=== PATIENT | female | born 1955 | race Caucasian/White ===

== ENCOUNTER 2018-05-14 08:14 | Outpatient (CLI) | payer OTHER ==
[2018-05-14] MEDS ORDERED: ISOVUE-370 76%-LOCM 1 ML ONE (10:33)
--- NOTE | 2018-05-14 11:15 | CT ---
HEAD CT WITH AND WITHOUT CONTRAST: Date: 05-14-18 Comparison: None available. History: Headache, patient reports sudden severe headache in the neck and occipital area radiating to the right side of the head. Technique: Serial axial CT imaging is obtained at 5 mm intervals from the vertex through the skull ba se with and without IV contrast. FINDINGS: The visualized paranasal sinuses and mastoids air cells are well aerated. There is no displaced javid rial fracture. There is no intracranial hemorrhage, midline shift, mass effect, or ventricular enlarg ement. The post contrast imaging is not tailored to evaluate the arterial structures. Post contrast i maging demonstrates no abnormal enhancement within the brain parenchyma. IMPRESSION: Unremarkable head CT with and without contrast. POS: [facility]
== END 2018-05-14 08:15 | disposition home or self-care (01) ==
LOC: BICCT 08:14
PROVIDERS: ATTEND Internal Medicine Cardiovascular Disease
DX: R51 Headache (principal)
CPT/HCPCS: 70470; 82565

== ENCOUNTER 2018-05-25 13:15 | Outpatient (CLI) | payer OTHER ==
--- NOTE | 2018-05-25 14:55 | RAD ---
PA AND LATERAL VIEWS CHEST: Date: 05/25/18 HISTORY: Dyspnea. FINDINGS: The heart size is normal. The lungs are expanded without focal areas of consolidation, pneumothoraces , mattie pulmonary edema, or pleural effusions. There are degenerative changes in the spine. IMPRESSION: No radiographic evidence of acute cardiopulmonary process. POS: [facility]
== END 2018-05-25 13:16 | disposition home or self-care (01) ==
LOC: RAD 13:15
PROVIDERS: ATTEND Internal Medicine
DX: R06.00 Dyspnea, unspecified (principal)
CPT/HCPCS: 71046

== ENCOUNTER 2018-06-01 08:45 | Outpatient (CLI) | payer OTHER | END 2018-06-01 08:46 | disposition home or self-care (01) | LOC: BICMAMMO 08:45 | PROVIDERS: ATTEND Family Medicine | DX: Z12.31 Encounter for screening mammogram for malignant neoplasm of breast (principal); Z80.3 Family history of malignant neoplasm of breast | CPT/HCPCS: 77063; 77067 ==

== ENCOUNTER 2018-06-16 12:03 | Outpatient (CLI) | payer OTHER ==
--- NOTE | 2018-06-16 15:23 | MRI ---
MRI OF PELVIS WITH AND WITHOUT IV CONTRAST: Date: 06/16/18 INDICATION: History of ovarian cyst. COMPARISON: Prior CT of abdomen and pelvis from [facility] dated 12/25/06. TECHNIQUE: Multiplanar, multisequence MR images were obtained of the pelvis with and without IV contrast utilizi ng 15 mL MultiHance. FINDINGS: The multiloculated cystic abnormality involving the right ovary measures 3.9 x 4.9 x 4.1 cm in its gr eatest craniocaudad, mediolateral, and AP dimensions, respectively. The lesion on the previous CT ken luation measured 4.5 x 3.0 cm. The lesion demonstrates some mild enhancing internal septations. No de finite nodule or solid component is evident. There is some mildly enhancing bowel seen around the are a. There is stable postsurgical change within the right lower quadrant of the abdomen. Visualized lef t adnexa is normal appearing. The uterus is surgically absent. The bladder, rectum, and perirectal so ft tissues are normal appearing. No definite enlarged lymph nodes are noted. No free fluid is demonst rated. 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 Cystadenocarcinoma cannot be ent irely excluded, but is felt to be less likely due to its relative stability since 2006. A follow-up e xamination in 6 months to 1 year is recommended to document continued stability. POS: [facility]
== END 2018-06-16 12:04 | disposition home or self-care (01) ==
LOC: BICMRI 12:03
PROVIDERS: ATTEND Obstetrics & Gynecology
DX: N83.201 Unspecified ovarian cyst, right side (principal)
CPT/HCPCS: 72197; 82565

== ENCOUNTER 2019-03-24 07:38 | Outpatient (CLI) | payer MEDICARE | END 2019-03-24 07:39 | disposition home or self-care (01) | LOC: CP 07:38 | PROVIDERS: ATTEND Internal Medicine | DX: R05 Cough (principal); G47.33 Obstructive sleep apnea (adult) (pediatric) | CPT/HCPCS: 94060; 94727; 94729 ==

== ENCOUNTER 2019-06-02 09:08 | Outpatient (CLI) | payer MEDICARE ==
--- NOTE | 2019-06-02 10:47 | MMO ---
Bilateral MAMMO Bilat Screen [facility]. CLINICAL HISTORY: Patient is 64 years old and is seen for screening. The patient has the following family history of breast cancer: sister, malignant (generic). The patient has no personal history of cancer. The patient has a history of left Cyst Aspiration more than 10 years ago - benign. VIEWS: The views performed were: bilateral craniocaudal with tomosynthesis and bilateral mediolateral oblique with tomosynthesis. FILMS COMPARED: The present examination has been compared to prior imaging studies performed at [facility] on 06/01/2018, and at [facility] on 01/01/2016, 07/04/2016 and 03/10/2017. This study has been interpreted with the assistance of computer-aided detection. MAMMOGRAM FINDINGS: The breasts are heterogeneously dense, which could obscure a lesion on mammography. Finding 1: There are multiple stable masses of varying size seen in both breasts. Finding 2: There are stable benign appearing calcifications seen in both breasts. There are no suspicious masses, suspicious calcifications, or new areas of architectural distortion. IMPRESSION: THERE IS NO MAMMOGRAPHIC EVIDENCE OF MALIGNANCY. A ROUTINE FOLLOW-UP MAMMOGRAM IN 1 YEAR IS RECOMMENDED. THE RESULTS OF THIS EXAM WERE SENT TO THE PATIENT. ACR BI-RADS Category 2 - Benign finding MAMMOGRAPHY NOTE: 1. A negative mammogram report should not delay a biopsy if a dominant of clinically suspicious mass is present. 2. Approximately 10% to 15% of breast cancers are not detected by mammography. 3. Adenosis and dense breasts may obscure an underlying neoplasm. Reported by: ED LIRA MD Electonically Signed: [id number]
== END 2019-06-02 09:09 | disposition home or self-care (01) ==
LOC: BICMAMMO 09:08
PROVIDERS: ATTEND Obstetrics & Gynecology
DX: Z12.31 Encounter for screening mammogram for malignant neoplasm of breast (principal); Z80.3 Family history of malignant neoplasm of breast
CPT/HCPCS: 77063; 77067

== ENCOUNTER 2019-06-21 12:23 | Emergency (ER) | payer MEDICARE ==
[2019-06-21] MEDS ORDERED: Diazepam 10 MG/2 ML SYRINGE ONE (13:32)
== END 2019-06-21 14:59 | disposition home or self-care (01) ==
LOC: ERS 12:23
DX: H81.399 Other peripheral vertigo, unspecified ear (principal); I10 Essential (primary) hypertension; E78.5 Hyperlipidemia, unspecified; Z79.899 Other long term (current) drug therapy
CPT/HCPCS: 96361; 96374; J3360

== ENCOUNTER 2020-06-05 08:54 | Outpatient (CLI) | payer MEDICARE ==
--- NOTE | 2020-06-05 10:57 | MMO ---
Bilateral MAMMO Bilat Diag [facility]. CLINICAL HISTORY: Patient is 65 years old and is seen for diagnostic exam and lump or thickening in the left breast. The patient has the following family history of breast cancer: sister, malignant (generic). The patient has no personal history of cancer. The patient has a history of left Cyst Aspiration more than 10 years ago - benign. VIEWS: The views performed were: bilateral craniocaudal with tomosynthesis; bilateral mediolateral oblique with tomosynthesis; and bilateral mediolateral with tomosynthesis. FILMS COMPARED: The present examination has been compared to prior imaging studies performed at [facility] on 06/01/2018, 06/02/2019 and 06/05/2020, and at [facility] on 03/10/2017. This study has been interpreted with the assistance of computer-aided detection. MAMMOGRAM FINDINGS: The breasts are heterogeneously dense, which could obscure a lesion on mammography. Finding 1: There is a new equal density, oval mass measuring 25 millimeters with circumscribed margins seen in the left breast at 11 o'clock. The mass was shown to be a cyst on ultrasound. This corresponds to the region of palpable concern. Finding 2: There are stable benign appearing densities seen in both breasts. Finding 3: There are stable benign appearing calcifications seen in both breasts. There are no suspicious masses, suspicious calcifications, or new areas of architectural distortion. IMPRESSION: THERE IS NO MAMMOGRAPHIC EVIDENCE OF MALIGNANCY. A ROUTINE FOLLOW-UP MAMMOGRAM IN 1 YEAR IS RECOMMENDED. THE RESULTS OF THIS EXAM WERE SENT TO THE PATIENT. ACR BI-RADS Category 2 - Benign finding MAMMOGRAPHY NOTE: 1. A negative mammogram report should not delay a biopsy if a dominant of clinically suspicious mass is present. 2. Approximately 10% to 15% of breast cancers are not detected by mammography. 3. Adenosis and dense breasts may obscure an underlying neoplasm. Reported by: MICHAEL GARCIA MD Electonically Signed: [id number]
--- NOTE | 2020-06-05 11:07 | ULT ---
EXAM: US Breast Limited Lt PROVIDED CLINICAL HISTORY: Left breast palpable abnormality COMPARISON: Concurrently performed diagnostic mammogram FINDINGS: Limited sonographic interrogation was performed of the left breast in the 11-12 o'clock positions in the region of palpable concern. Multiple simple cysts are seen, largest of which measures about 2.5 cm. No concerning sonographic findings are evident. IMPRESSION: Simple cyst in the region of palpable concern. No concerning sonographic findings. BI-RADS 2 -- benign findings
== END 2020-06-05 08:55 | disposition home or self-care (01) ==
LOC: BICMAMMO 08:54
PROVIDERS: ATTEND Obstetrics & Gynecology
DX: N63.21 Unspecified lump in the left breast, upper outer quadrant (principal); N60.02 Solitary cyst of left breast
CPT/HCPCS: 76642; 77066; G0279

== ENCOUNTER 2021-06-10 09:58 | Outpatient (CLI) | payer MEDICARE, OTHER | END 2021-06-10 09:59 | disposition home or self-care (01) | LOC: BICMAMMO 09:58 | PROVIDERS: ATTEND Obstetrics & Gynecology | DX: Z12.31 Encounter for screening mammogram for malignant neoplasm of breast (principal); Z80.3 Family history of malignant neoplasm of breast | CPT/HCPCS: 77063; 77067 ==

== ENCOUNTER 2022-07-02 09:41 | Outpatient (CLI) | payer MEDICARE | END 2022-07-02 09:42 | disposition home or self-care (01) | LOC: BICMAMMO 09:41 | PROVIDERS: ATTEND Obstetrics & Gynecology | DX: Z12.31 Encounter for screening mammogram for malignant neoplasm of breast (principal); R92.8 Other abnormal and inconclusive findings on diagnostic imaging of breast; Z80.3 Family history of malignant neoplasm of breast; Z98.890 Other specified postprocedural states; Z86.018 Personal history of other benign neoplasm | CPT/HCPCS: 77063; 77067 ==

== ENCOUNTER 2023-08-14 09:18 | Outpatient (CLI) | payer MEDICARE, OTHER | END 2023-08-14 09:19 | disposition home or self-care (01) | LOC: BICMAMMO 09:18 | PROVIDERS: ATTEND Obstetrics & Gynecology | DX: Z12.31 Encounter for screening mammogram for malignant neoplasm of breast (principal); Z80.3 Family history of malignant neoplasm of breast | CPT/HCPCS: 77063; 77067 ==

== ENCOUNTER 2025-03-08 08:45 | Outpatient (CLI) | payer MEDICARE, OTHER | END 2025-03-08 08:46 | disposition home or self-care (01) | LOC: BICMAMMO 08:45 | PROVIDERS: ATTEND Obstetrics & Gynecology | DX: Z12.31 Encounter for screening mammogram for malignant neoplasm of breast (principal); Z80.3 Family history of malignant neoplasm of breast; Z91.89 Other specified personal risk factors, not elsewhere classified | CPT/HCPCS: 77063; 77067 ==